=== PATIENT | male | born 2000 | race Caucasian/White ===

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

== ENCOUNTER 2019-05-28 12:11 | Emergency (ER) | payer MEDICAID, OTHER ==
[~2019-05-28] VITALS: Ht 185.4 cm; Wt 113.9 kg
[2019-05-28 12:21] VITALS: BP 132/89
--- NOTE | 2019-05-28 12:31 | NUR ---
C/O BODYACHES, HACKING COUGH, THROAT PAIN, DIARRHEA, AND NAUSEA DENIES FEVER OR EMESIS--- ADDS FEELS FATIGUED
[2019-05-28] MEDS ORDERED: MECLIZINE 25 MG TAB PO ONE (12:40)
[2019-05-28] MEDS ORDERED: PROMETHAZINE 25 MG/ML VIAL IM ONE (12:40)
[2019-05-28] MEDS ORDERED: cefTRIAXone 1,000 MG in LIDOCAINE MPF 1% 2.1 ML IM ONE (12:40)
[2019-05-28] MEDS ORDERED: hydrOXYzine HCL 25 MG TAB PO ONE (12:40)
[2019-05-28] MEDS ORDERED: predniSONE 20 MG TAB PO ONE (12:40)
[2019-05-28] MEDS ORDERED: cefTRIAXone 1,000 MG VIAL ONE (12:46)
[2019-05-28] MEDS ORDERED: LIDOCAINE MPF 1% 5 ML ONE (12:47)
--- NOTE | 2019-05-28 13:00 | NUR ---
FLU SWAB COLLECTED BY DIOGO ROBLEDO
--- NOTE | 2019-05-28 13:01 | NUR ---
INFLUENZA SWAB COLLECTED AND HANDED TO LAB
[2019-05-28 13:46] VITALS: BP 123/78
--- NOTE | 2019-05-28 13:46 | NUR ---
Patient discharged with v/s stable. Written and verbal after care instructions given and explained. Patient alert, oriented and verbalized understanding of instructions. Ambulatory with steady gait. All questions addressed prior to discharge. ID band removed. Patient advised to follow up with PMD. Rx of CLINDAMYCIN, PROMETHAZINE, PREDNISONE given. Patient educated on indication of medication including possible reaction and side effects. Opportunity to ask questions provided and answered.
== END 2019-05-28 13:46 | disposition home or self-care (01) ==
LOC: MED 12:11
DX: J02.9 Acute pharyngitis, unspecified (principal); J06.9 Acute upper respiratory infection, unspecified; R19.7 Diarrhea, unspecified; R10.9 Unspecified abdominal pain
CPT/HCPCS: 87804; 96372; 99284; J0696; J2001; J2550; J7512; J8597

== ENCOUNTER 2019-05-28 22:10 | Emergency (ER) | payer OTHER ==
[~2019-05-28] VITALS: Ht 185.4 cm; Wt 112.9 kg
[2019-05-28 22:10] VITALS: BP 150/63
--- NOTE | 2019-05-28 22:10 | NUR ---
TO BED # 04 AMBULATORY
--- NOTE | 2019-05-28 22:22 | NUR ---
Dr. Gordon examining patient.
[2019-05-28] MEDS ORDERED: LORazepam 2 MG/ML VIAL ONE (22:23)
[2019-05-28] MEDS ORDERED: LORazepam 2 MG/ML VIAL IM ONE (22:25)
--- NOTE | 2019-05-28 22:25 | NUR ---
PATIENT ASSESSMENT COMPLETED AT THIS TIME. PATIENT SITTING UP IN BED. BED IN LOW LOCKED POSITION WITH SIDE RAIL UP ON ONE SIDE. DR FORREST AT BEDSIDE.
--- NOTE | 2019-05-28 22:58 | NUR ---
PATIENT STATES HE STILL HAS SLIGHT TINGLING ON HIS FOREARMS. ERMD AWARE.
[2019-05-28 23:02] VITALS: BP 150/63
--- NOTE | 2019-05-28 23:02 | NUR ---
DR FORREST DC AND EDUCATED PATIENT. PATIENT AMB WITH STEADY GAIT. WRIST BAND REMOVED.
== END 2019-05-28 23:02 | disposition home or self-care (01) ==
LOC: MED 22:10
DX: F41.9 Anxiety disorder, unspecified (principal); F12.10 Cannabis abuse, uncomplicated; F17.200 Nicotine dependence, unspecified, uncomplicated; Z71.6 Tobacco abuse counseling
CPT/HCPCS: 96372; 99283; J2060

== ENCOUNTER 2019-06-03 12:58 | Emergency (ER) | payer OTHER ==
[~2019-06-03] VITALS: Ht 185.4 cm; Wt 114.8 kg
[2019-06-03 13:20] VITALS: BP 158/98
--- NOTE | 2019-06-03 13:36 | NUR ---
18 YR OLD MALE BIB SELF AMBULATES TO BED 7 W/ C/O SWOLLEN TONSILS, DIFFICUTL TO SWALLOW, SORE THROAT X 2 DAYS. SWELLING AGRAVATED PER PT WHEN HE STARTED SMOKIING "WEED". TAKING ANTIBIOTICS PRESCRIBE ON MAY 28, FOR SINUSITIS. HX: 1 KIDNEY
[2019-06-03] MEDS ORDERED: KETOROLAC 30 MG/ML VIAL IM ONE (13:45)
--- NOTE | 2019-06-03 14:08 | NUR ---
STREP SWAB COLLECTED
[2019-06-03 14:59] VITALS: BP 136/72
== END 2019-06-03 14:59 | disposition home or self-care (01) ==
LOC: MED 12:58
DX: J02.9 Acute pharyngitis, unspecified (principal); F41.9 Anxiety disorder, unspecified; F12.90 Cannabis use, unspecified, uncomplicated
CPT/HCPCS: 87081; 96372; 99283; J1885

== ENCOUNTER 2020-04-11 15:27 | Emergency (ER) | payer MEDICAID, OTHER ==
[~2020-04-11] VITALS: Ht 185.4 cm; Wt 108.9 kg
[2020-04-11 15:31] VITALS: BP 140/59
[2020-04-11] MEDS ORDERED: LIDOCAINE 2% 1000 MG/50 ML VIAL INJ ONE (16:00)
--- NOTE | 2020-04-11 16:15 | NUR ---
PATIENT PRESENTS TO ED WITH C/O LACERATION LEFT 2NG DIGIT . PT STATES CUT WITH GLASS. DENIES N/V/D; SKIN IS PINK/WARM/DRY; AAOX4 WITH EVEN AND STEADY GAIT; LUNGS CLEAR BL; HR EVEN AND REGULAR; PT DENIES ANY FEVER, CP, SOB, OR COUGH AT THIS TIME; VSS; PATIENT POSITIONED FOR COMFORT; HOB ELEVATED; BEDRAILS UP X2; BED DOWN. ER MD MADE AWARE OF PT STATUS.
[2020-04-11] MEDS ORDERED: BACITRACIN OINT 500 UNITS/GM PKT TP ONE ×2 (16:34→16:35)
--- NOTE | 2020-04-11 16:45 | NUR ---
SUTURING HAS BEEN COMPLETED. DRESSING, BACITRACIN AND SPLINT APPLIED. (+) CSM. TETANUS SHOT GIVEN
--- NOTE | 2020-04-11 16:59 | NUR ---
Patient discharged with v/s stable. Written and verbal after care instructions given and explained. Patient alert, oriented and verbalized understanding of instructions. Ambulatory with steady gait. All questions addressed prior to discharge. ID band removed. Patient advised to follow up with PMD. Rx of IBUPROFEN AND BACITRACIN OINTMENT given. Patient educated on indication of medication including possible reaction and side effects. Opportunity to ask questions provided and answered.
== END 2020-04-11 16:59 | disposition home or self-care (01) ==
LOC: MED 15:27
DX: S61.211A Laceration without foreign body of left index finger without damage to nail, initial encounter (principal); F12.90 Cannabis use, unspecified, uncomplicated; W26.9XXA Contact with unspecified sharp object(s), initial encounter; Y93.89 Activity, other specified; Y92.89 Other specified places as the place of occurrence of the external cause; Y99.8 Other external cause status
CPT/HCPCS: 12002; 73140; 90471; 90715; 99283; J2001; Q0092

== ENCOUNTER 2020-04-13 16:33 | Emergency (ER) | payer MEDICAID ==
[~2020-04-13] VITALS: Ht 188 cm; Wt 108.9 kg
[2020-04-13 16:38] VITALS: BP 143/77
--- NOTE | 2020-04-13 16:43 | NUR ---
PT AMB TO BED 12.
[2020-04-13] MEDS ORDERED: BACITRACIN OINT 500 UNITS/GM PKT TP ONE (16:55)
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
[2020-04-13 17:21] VITALS: BP 143/77
--- NOTE | 2020-04-13 17:21 | NUR ---
Patient discharged with v/s stable. Written and verbal after care instructions given and explained. Patient verbalized understanding. Ambulatory with steady gait. All questions addressed prior to discharge. Advised to follow up with PMD.
== END 2020-04-13 17:21 | disposition home or self-care (01) ==
LOC: MED 16:33
DX: S61.211D Laceration without foreign body of left index finger without damage to nail, subsequent encounter (principal); F17.200 Nicotine dependence, unspecified, uncomplicated; F12.90 Cannabis use, unspecified, uncomplicated; X58.XXXD Exposure to other specified factors, subsequent encounter
CPT/HCPCS: 99282

== ENCOUNTER 2020-04-18 18:33 | Emergency (ER) | payer MEDICAID ==
[~2020-04-18] VITALS: Ht 185.4 cm; Wt 108.9 kg
[2020-04-18 18:53] VITALS: BP 116/71
[2020-04-18] MEDS ORDERED: BACITRACIN OINT 500 UNITS/GM PKT TP ONE (19:10)
[2020-04-18 19:33] VITALS: BP 105/84
== END 2020-04-18 19:34 | disposition home or self-care (01) ==
LOC: MED 18:33
DX: S61.211D Laceration without foreign body of left index finger without damage to nail, subsequent encounter (principal); X58.XXXD Exposure to other specified factors, subsequent encounter
CPT/HCPCS: 99282

== ENCOUNTER 2020-04-21 20:03 | Emergency (ER) | payer MEDICAID ==
[~2020-04-21] VITALS: Ht 185.4 cm; Wt 118.4 kg
[2020-04-21 20:53] VITALS: BP 138/94
--- NOTE | 2020-04-21 20:57 | NUR ---
PT TAKEN TO BED [facility] VIA STEADY GAIT.
--- NOTE | 2020-04-21 21:13 | NUR ---
no nursing intervention ordered by NANCY Sparks.
== END 2020-04-21 21:13 | disposition home or self-care (01) ==
LOC: MED 20:03
DX: S61.412D Laceration without foreign body of left hand, subsequent encounter (principal); R03.0 Elevated blood-pressure reading, without diagnosis of hypertension; X58.XXXD Exposure to other specified factors, subsequent encounter
CPT/HCPCS: 99283